=== PATIENT | male | born 1955 | race Caucasian/White ===

== ENCOUNTER → 2016-11-06 | Outpatient (CLI) | payer BC ==
--- NOTE | 2016-11-06 09:05 | DIAGNOSTIC IMAGING REPORT ---
CHEST 2 VIEWS ROUTINE HISTORY: Right-sided wheezing. COMPARISON: Chest 12/20/2015. FINDINGS: The lungs are clear. Cardiac silhouette is normal in size. No pleural effusions. No pneumothorax. IMPRESSION: No acute process. Electronically signed by: Gerard Riley M.D. 11/06/2016 9:03 AM Dictated Date/Time: 11/06/2016 9:02 AM
== END | disposition home or self-care (01) ==
LOC: C.RAD1850 08:26
PROVIDERS: ATTEND Family Medicine
DX: R06.2 Wheezing (principal); Z87.891 Personal history of nicotine dependence